=== PATIENT | female | born 1980 | race Caucasian/White ===

== ENCOUNTER → 2016-10-30 | Outpatient (REF) | payer OTHER ==
[2016-10-30 19:46] LABS: CONTROL LINE UCG INT CTR LINE PRESENT
== END ==
LOC: M LAB REF 09:35
PROVIDERS: ATTEND Physician Assistant Medical
DX: N39.0 Urinary tract infection, site not specified (principal)

== ENCOUNTER → 2016-11-19 | Outpatient (CLI) | payer OTHER ==
[2016-11-19 17:16] LABS: FREE T4 1.09 NG/DL (0.76-1.46); HCG, SERUM QUANTITATIVE < 1.0 MIU/ML
[2016-11-19 17:18] LABS: LUTEINIZING HORMONE 4.8 mIU/mL; PROLACTIN 6.3 NG/ML
[2016-11-19 17:19] LABS: FOLLICLE STIMULATING HORMONE 7.5 mIU/mL
== END ==
LOC: M LAB 15:51
PROVIDERS: ATTEND Student in an Organized Health Care Education/Training Program
DX: N91.2 Amenorrhea, unspecified (principal)

== ENCOUNTER 2016-12-17 15:28 | Emergency (ER) | payer OTHER ==
[~2016-12-17] VITALS: Ht 167.6 cm; Wt 110.2 kg
[2016-12-17] MEDS ORDERED: RANI150T (15:42)
[2016-12-17] MEDS ORDERED: TRAZ150T14 (15:42)
[2016-12-17] MEDS ORDERED: LORA10TA2 (15:42)
[2016-12-17] MEDS ORDERED: PRIL20CA9 PO (15:42)
[2016-12-17] MEDS ORDERED: VARE1TA (15:42)
[2016-12-17] MEDS ORDERED: ALBU17IN (15:42)
--- NOTE | 2016-12-17 16:56 | REP ---
Left knee series: Five views. History: Trauma. Comparison left knee radiograph is from June 18, 2008. Findings: Five views of the left knee demonstrate normal bones, joints, and soft tissues. No fracture, subluxation or joint effusion is seen. Impression: Negative left knee series. Signed by Lui Villeda MD 12/17/2016 05:40 P
[2016-12-17] MEDS ORDERED: NAPR500T PO (17:34)
[2016-12-17 17:38] VITALS: BP 127/66
== END 2016-12-17 17:43 | disposition home or self-care (01) ==
LOC: M ED 17:37
DX: S80.02XA Contusion of left knee, initial encounter (principal); S83.92XA Sprain of unspecified site of left knee, initial encounter; W19.XXXA Unspecified fall, initial encounter; Y92.410 Unspecified street and highway as the place of occurrence of the external cause; Y93.89 Activity, other specified; Y99.8 Other external cause status

== ENCOUNTER → 2017-05-20 | Outpatient (REF) | payer OTHER ==
[~2017-05-20] MED LIST: ALBU17IN; LORA10TA2; NAPR500T PO; PRIL20CA9 PO; RANI150T; TRAZ1TAB14; VARE1TA
[2017-05-20 16:21] LABS: BASO % 0.5 % (0.0-1.0); EOS # 0.2 K/mm3 (0.0-0.50); EOS % 2.3 % (0.0-3.0); LARGE UNSTAINED CELL # 0.1 K/mm3 (0.0-0.4); LARGE UNSTAINED CELL % 1.4 % (0.0-4.0); LYMPH # 3.8 K/mm3 (1.5-4.5); LYMPH % 42.9 % (24.0-44.0); MEAN CORPUSCULAR HGB CONC 34.3 g/dl (32.0-36.5); MEAN CORPUSCULAR VOLUME 93.2 fl (80.0-96.0); MONO # 0.5 K/mm3 (0.0-0.8); MONO % 5.5 % (0.0-5.0); NEUTROPHILS # 4.1 K/mm3 (1.8-7.7); NEUTROPHILS % 47.3 % (36.0-66.0); PLATELET COUNT, AUTOMATED 165 k/mm3 (150-450); RED CELL DISTRIBUTION WIDTH 12.8 % (11.5-14.5); WHITE BLOOD COUNT 8.6 K/mm3 (4.0-10.0)
== END ==
LOC: M SFHCPLAZ 14:37
DX: R06.02 Shortness of breath (principal)

== ENCOUNTER → 2017-07-20 | Outpatient (CLI) | payer OTHER ==
[2017-07-20 09:47] LABS: BASO % 0.5 % (0.0-1.0); EOS # 0.2 10^3/uL (0.0-0.50); EOS % 2.2 % (0.0-3.0); IMMATURE GRANULOCYTE % 0.2 % (0-0); LYMPH # 3.1 10^3/uL (1.5-4.5); LYMPH % 37.8 % (24.0-44.0); MEAN CORPUSCULAR HGB CONC 33.8 g/dl (32.0-36.5); MEAN CORPUSCULAR VOLUME 91.8 fl (80.0-96.0); MONO # 0.4 10^3/uL (0.0-0.8); MONO % 5.4 % (0.0-5.0); NEUTROPHILS # 4.4 10^3/uL (1.8-7.7); NEUTROPHILS % 53.9 % (36.0-66.0); PLATELET COUNT, AUTOMATED 152 10^3/uL (150-450); RED CELL DISTRIBUTION WIDTH 12.3 % (11.5-14.5); WHITE BLOOD COUNT 8.1 10^3/uL (4.0-10.0)
[2017-07-20 10:22] LABS: ALBUMIN 3.2 GM/DL (3.2-5.2); ALBUMIN/GLOBULIN RATIO 0.89 (1.00-1.93); ALKALINE PHOSPHATASE 85 U/L (45-117); ALT/SGPT 26 U/L (12-78); ANION GAP 6 MEQ/L (8-16); AST/SGOT 16 U/L (15-37); BILIRUBIN,TOTAL 0.3 MG/DL (0.2-1.0); BLOOD UREA NITROGEN 9 MG/DL (7-18); CALCIUM LEVEL 8.6 MG/DL (8.5-10.1); CARBON DIOXIDE LEVEL 28 MEQ/L (21-32); CHLORIDE LEVEL 104 MEQ/L (98-107); CHOLESTEROL LEVEL 184 MG/DL (<200); CREATININE FOR GFR 0.58 MG/DL (0.55-1.02); GLOMERULAR FILTRATION RATE > 60.0 (>60); GLUCOSE, FASTING 99 MG/DL (70-105); POTASSIUM SERUM 3.9 MEQ/L (3.5-5.1); SODIUM LEVEL 138 MEQ/L (136-145); TOTAL PROTEIN 6.8 GM/DL (6.4-8.2); TRIGLYCERIDES LEVEL 255 MG/DL (<150)
--- NOTE | 2017-07-21 05:24 | REP ---
Clinical: Back pain. Peripheral vascular disease . Technique: AP, lateral, bilateral oblique, and coned-down views. Findings: Alignment and lordosis is maintained. The vertebral bodies including transverse process and spinous processes are intact and normal. There is no evidence for acute fracture / compression injury or subluxation. No evidence for spondylolysis or spondylolisthesis. No significant degenerative change is noted. Impression: Normal lumbosacral spine radiograph series. Signed by Mt Herman MD 07/21/2017 05:15 A
== END ==
LOC: M LAB 09:06
PROVIDERS: ATTEND Student in an Organized Health Care Education/Training Program
DX: I73.9 Peripheral vascular disease, unspecified (principal)

== ENCOUNTER 2017-10-05 17:37 | Emergency (ER) | payer OTHER | END 2017-10-05 21:14 | disposition home or self-care (01) | LOC: M ED 17:37 | DX: J06.9 Acute upper respiratory infection, unspecified (principal); F17.200 Nicotine dependence, unspecified, uncomplicated; F41.9 Anxiety disorder, unspecified; F32.9 Major depressive disorder, single episode, unspecified; J45.909 Unspecified asthma, uncomplicated | CPT/HCPCS: 71046 ==

== ENCOUNTER → 2017-10-15 | Outpatient (REF) | payer OTHER | LOC: M SFHCWAGY 15:45 | DX: Z12.4 Encounter for screening for malignant neoplasm of cervix (principal); Z11.3 Encounter for screening for infections with a predominantly sexual mode of transmission ==

== ENCOUNTER → 2017-10-15 | Outpatient (REF) | payer OTHER ==
[2017-10-15 21:51] LABS: CHLAMYDIA DNA AMPLIFICATION NEGATIVE (NEGATIVE); GC DNA AMPLIFICATION NEGATIVE (NEGATIVE)
== END ==
LOC: M SFHCWAGY 17:21
DX: Z11.3 Encounter for screening for infections with a predominantly sexual mode of transmission (principal)

== ENCOUNTER 2017-10-21 20:11 | Emergency (ER) | payer OTHER | END 2017-10-21 22:46 | disposition home or self-care (01) | LOC: M ED 20:11 | DX: L03.116 Cellulitis of left lower limb (principal); K21.9 Gastro-esophageal reflux disease without esophagitis; F41.9 Anxiety disorder, unspecified; F32.9 Major depressive disorder, single episode, unspecified; F17.210 Nicotine dependence, cigarettes, uncomplicated; Z88.6 Allergy status to analgesic agent; Z79.1 Long term (current) use of non-steroidal anti-inflammatories (NSAID); Z79.899 Other long term (current) drug therapy; Z79.51 Long term (current) use of inhaled steroids | CPT/HCPCS: 93971 ==

== ENCOUNTER → 2017-10-28 | Outpatient (REF) | payer OTHER ==
[2017-10-28 21:26] LABS: MAU/CREAT RATIO 231.7 MCG/MG (0.0-30.0)
[2017-10-28 22:31] LABS: ESTIMATED AVERAGE GLUCOSE 126 MG/DL (60-110)
== END ==
LOC: M SFHCPLAZ 13:44
DX: Z13.1 Encounter for screening for diabetes mellitus (principal)
CPT/HCPCS: 83036

== ENCOUNTER → 2018-02-02 | Outpatient (CLI) | payer OTHER ==
[2018-02-02 10:41] LABS: D-DIMER QUANT 576.4 ng/ml (<500)
== END ==
LOC: M LAB 09:41
DX: Z00.00 Encounter for general adult medical examination without abnormal findings (principal)
CPT/HCPCS: 36415

== ENCOUNTER → 2018-02-09 | Outpatient (CLI) | payer OTHER ==
[~2018-02-09] MED LIST changes: -ALBU17IN; +ISOVUE-300 61% 50ML VIAL (Q9967) As Ordered; +ISOVUE-370 76% 100ML VIAL (Q9967) As Ordered; -LORA10TA2; -NAPR500T PO; -PRIL20CA9 PO; -RANI150T; -TRAZ1TAB14; -VARE1TA
== END ==
LOC: M RAD 17:55
DX: R06.02 Shortness of breath (principal)
CPT/HCPCS: Q9967

== ENCOUNTER 2018-06-14 18:43 | Emergency (ER) | payer OTHER ==
[2018-06-14] MEDS: IBUPROFEN 800 MG TAB PO (19:12)
== END 2018-06-14 20:35 | disposition home or self-care (01) ==
LOC: M ED 18:43
DX: M25.541 Pain in joints of right hand (principal); F41.9 Anxiety disorder, unspecified; F32.9 Major depressive disorder, single episode, unspecified; K21.9 Gastro-esophageal reflux disease without esophagitis; F17.200 Nicotine dependence, unspecified, uncomplicated; Z88.6 Allergy status to analgesic agent; Z79.899 Other long term (current) drug therapy; Z79.1 Long term (current) use of non-steroidal anti-inflammatories (NSAID)
CPT/HCPCS: 73130

== ENCOUNTER → 2018-08-29 | Outpatient (CLI) | payer OTHER | LOC: M RAD 15:15 | DX: R05 Cough (principal) | CPT/HCPCS: 71046 ==

== ENCOUNTER 2019-02-20 22:00 | Emergency (ER) | payer OTHER ==
[~2019-02-20] VITALS: Ht 167.6 cm; Wt 113.6 kg
[~2019-02-20 22:00] MED LIST changes: +ALBU17IN; +BREO1INH; +CITA20TA6; +FLUTISP; +INDO50CA11 PO; -ISOVUE-300 61% 50ML VIAL (Q9967) As Ordered; -ISOVUE-370 76% 100ML VIAL (Q9967) As Ordered; +KEFL500C17 PO; +LORA-243; +NAPR-837 PO; +PRIL20CA9 PO; +RANI150T; +TESS100C PO; +TRAZ1TAB14; +VARE1TA; +ZITHTAB PO
[2019-02-20] MEDS ORDERED: IPRATROPIUM 0.5MG/ALBUTEROL 2.5MG INH SOL UD 3ML (DUONEB)(J7620) NEB ONE (22:30)
[2019-02-20 22:36] LABS: HEMATOCRIT 42.6 % (36.0-47.0); HEMOGLOBIN 14.3 g/dl (12.0-15.5); MEAN CORPUSCULAR HEMOGLOBIN 31.8 pg (27.0-33.0); MEAN CORPUSCULAR HGB CONC 33.6 g/dl (32.0-36.5); MEAN CORPUSCULAR VOLUME 94.7 fl (80.0-96.0); PLATELET COUNT, AUTOMATED 152 10^3/uL (150-450); WHITE BLOOD COUNT 8.4 10^3/uL (4.0-10.0)
[2019-02-20 23:13] LABS: BLOOD UREA NITROGEN 17 MG/DL (7-18); CALCIUM LEVEL 8.3 MG/DL (8.5-10.1); CARBON DIOXIDE LEVEL 25 MEQ/L (21-32); CHLORIDE LEVEL 107 MEQ/L (98-107); CREATININE FOR GFR 1.45 MG/DL (0.55-1.30); GLOMERULAR FILTRATION RATE 42.8 (>60); GLUCOSE, FASTING 160 MG/DL (70-100); NT-PRO BNP < 5 PG/ML (<125); POTASSIUM SERUM 3.8 MEQ/L (3.5-5.1); SODIUM LEVEL 139 MEQ/L (136-145)
[2019-02-20] MEDS ORDERED: ISOVUE-370 76% 100ML VIAL (Q9967) As Ordered ONE (23:21)
[2019-02-20] MEDS ORDERED: NS 1,000 ML IV ONE (23:30)
--- NOTE | 2019-02-20 23:38 | REPVR ---
EXAM: US Duplex Right Lower Extremity Veins, Limited EXAM DATE/TIME: 02/20/2019 11:08 PM CLINICAL HISTORY: 38 years old, female; Signs and symptoms; Edema, localized; Lower extremity, right; Additional info: Right calf foot swelling, pain TECHNIQUE: Imaging protocol: Real-time Duplex ultrasound of the Right Lower Extremity with 2-D mead scale, color Doppler flow and spectral waveform analysis. Limited exam was focused on the right lower extremity veins. COMPARISON: US Duplex, Ext,LOWER veins,unilat 10/21/2017 10:03 PM FINDINGS: Right deep veins: Unremarkable. The common femoral, femoral and popliteal veins are patent without thrombus. Normal Doppler waveforms. Normal compressibility and/or augmentation response. Right superficial veins: Unremarkable. Saphenofemoral junction is patent without thrombus. Soft tissues: Unremarkable. IMPRESSION: No sonographic evidence of deep vein thrombosis. Electronically signed by: Jose Bullock On 02/20/2019 23:38:08 PM
--- NOTE | 2019-02-21 00:06 | REPVR ---
EXAM: CT Angiography Chest With Contrast EXAM DATE/TIME: 02/20/2019 11:17 PM CLINICAL HISTORY: 38 years old, female; Pain and signs and symptoms; Cough and shortness of breath; Chest pain; Type not specified; Additional info: Cough, SOB, tachy, elev d dimer TECHNIQUE: Imaging protocol: Axial computed tomographic angiography images of the chest with intravenous contrast using CT angiography protocol. Coronal and sagittal reformatted images were created and reviewed. 3D rendering: MIP reconstructed images were created and reviewed. Radiation optimization: All CT scans at this facility use at least one of these dose optimization techniques: automated exposure control; mA and/or kV adjustment per patient size (includes targeted exams where dose is matched to clinical indication); or iterative reconstruction. Contrast material: ISO; Contrast volume: 75 ml; Contrast route: AC; COMPARISON: CT ANGIO CHEST 02/09/2018 6:14 PM FINDINGS: Pulmonary arteries: Contrast opacification satisfactory. No intraluminal filling defect. Aorta: Unremarkable. No aneurysm or dissection. Lungs: Mild linear stranding and groundglass, likely due to atelectasis and/or scarring. No focal consolidation. Pleural space: Unremarkable. No pneumothorax. No pleural effusion. Heart: Unremarkable. No cardiomegaly. No pericardial effusion. Lymph nodes: Small mediastinal lymph nodes, nonspecific in appearance. No pathologically enlarged lymph nodes. Bones/joints: No acute osseous abnormality. Mild degenerative changes. Soft tissues: Unremarkable. IMPRESSION: 1. No CT evidence of pulmonary embolism. 2. Additional findings, as above. Electronically signed by: Jose Bullock On 02/21/2019 00:06:04 AM
[2019-02-21 00:50] VITALS: BP 140/67
--- NOTE | 2019-02-21 06:15 | REP ---
Clinical: Shortness of breath . Comparison: 08/29/2018 . Technique: PA and lateral. Findings: The mediastinum and cardiac silhouette are normal. The lung miner are clear and without acute consolidation, effusion, or pneumothorax. The skeletal structures are intact and normal. Impression: 1. No acute cardiopulmonary process. Electronically Signed by Mt Herman MD 02/21/2019 06:07 A
== END 2019-02-21 00:53 | disposition home or self-care (01) ==
LOC: M ED 22:00
DX: R60.0 Localized edema (principal); R06.02 Shortness of breath; R05 Cough; J45.909 Unspecified asthma, uncomplicated; F41.0 Panic disorder [episodic paroxysmal anxiety]; Z72.0 Tobacco use; Z79.899 Other long term (current) drug therapy
CPT/HCPCS: 71046; 71275; 80048; 83880; 85027; 85379; 93971; 94640; 96360; 99284; Q9967

== ENCOUNTER → 2019-03-01 | Outpatient (CLI) | payer OTHER ==
[2019-03-01 15:26] LABS: APPEARANCE, URINE CLEAR (CLEAR); BACTERIA, URINE AUTO 1+ (NEGATIVE); BILIRUBIN, URINE AUTO NEGATIVE (NEGATIVE); BLOOD, URINE BLOOD 3+ (NEGATIVE); COLOR, URINE STRAW (YELLOW); GLUCOSE, URINE (UA) AUTO NEGATIVE (NEGATIVE); KETONE, URINE AUTO NEGATIVE (NEGATIVE); LEUKOCYTE ESTERASE, URINE AUTO NEGATIVE (NEGATIVE); MUCUS, URINE SMALL (NEGATIVE); NITRITE, URINE AUTO NEGATIVE (NEGATIVE); PROTEIN, URINE AUTO NEGATIVE (NEGATIVE); RBC, URINE AUTO 6 /HPF (0-3); SPECIFIC GRAVITY URINE AUTO 1.003 (1.002-1.035); SQUAMOUS EPITHELIAL CELL UR AU 0 /HPF (0-6); UROBILINOGEN, URINE AUTO 0.2 mg/dL (0.0-2.0); WBC, URINE AUTO 1 /HPF (0-3)
[2019-03-01 15:45] LABS: HEMOGLOBIN A1c 5.6 %
[2019-03-01 15:50] LABS: BLOOD UREA NITROGEN 9 MG/DL (7-18); CALCIUM LEVEL 9.6 MG/DL (8.5-10.1); CARBON DIOXIDE LEVEL 29 MEQ/L (21-32); CHLORIDE LEVEL 106 MEQ/L (98-107); CREATININE FOR GFR 0.72 MG/DL (0.55-1.30); GLOMERULAR FILTRATION RATE > 60.0 (>60); GLUCOSE, FASTING 93 MG/DL (70-100); POTASSIUM SERUM 4.3 MEQ/L (3.5-5.1); SODIUM LEVEL 139 MEQ/L (136-145)
[2019-03-01 15:52] LABS: TOTAL PROTEIN,RANDOM URINE 23.4 MG/DL (0.0-12.0)
[2019-03-01 16:16] LABS: HEPATITIS B SURFACE ANTIGEN NEGATIVE (NEGATIVE)
[2019-03-01 16:44] LABS: HEPATITIS B CORE ANTIBODY IGM NEGATIVE (NEGATIVE); HIV 1&2 SCREEN CENTAUR NEGATIVE (NEGATIVE)
[2019-03-01 16:46] LABS: HEPATITIS A ANTIBODY IGM NEGATIVE (NEGATIVE)
[2019-03-01 18:11] LABS: HEPATITIS C VIRUS ABY INDEX 2.3 INDEX (<0.8)
[2019-03-09 14:51] LABS: ANTI DS-DNA AB <1:10 titer (.); ANTI-GLOMERULAR BASEMENT MEMB 3 units (0-20); ANTINUCLEAR ANTIBODIES DIRECT Negative (Negative)
== END ==
LOC: M LAB 14:42
PROVIDERS: ATTEND Hospitalist
DX: R80.9 Proteinuria, unspecified (principal)

== ENCOUNTER → 2019-03-08 | Outpatient (CLI) | payer OTHER, SELFPAY ==
[2019-03-08 10:12] LABS: ALBUMIN 3.4 GM/DL (3.2-5.2); ALT/SGPT 37 U/L (12-78); BILIRUBIN,TOTAL 0.1 MG/DL (0.2-1.0); BLOOD UREA NITROGEN 12 MG/DL (7-18); CALCIUM LEVEL 8.7 MG/DL (8.5-10.1); CARBON DIOXIDE LEVEL 25 MEQ/L (21-32); CHLORIDE LEVEL 107 MEQ/L (98-107); CREATININE FOR GFR 0.67 MG/DL (0.55-1.30); GLOMERULAR FILTRATION RATE > 60.0 (>60); GLUCOSE, FASTING 130 MG/DL (70-100); SODIUM LEVEL 140 MEQ/L (136-145)
[2019-03-08 11:19] LABS: URINE TOTAL PROTEIN 59.7 MG/DL (0-12)
[2019-03-09 07:49] LABS: CRYOGLOBULINS NEGATIVE (NEGATIVE)
[2019-03-09 10:34] LABS: UPEP INTERPRETATION NO M-SPIKE NOTED; URINE VOLUME RANDOM ML
[2019-03-09 11:36] LABS: ALBUMIN 3.84 GM/DL (3.29-5.55); ALBUMIN % 54.9 % (55.8-66.1); ALPHA-1-GLOBULIN % 4.3 % (2.9-4.9); ALPHA-2-GLOBULINS 0.86 GM/DL (0.42-0.99); ALPHA-2-GLOBULINS % 12.3 % (7.1-11.8); BETA-1-GLOBULINS 0.38 GM/DL (0.28-0.60); BETA-1-GLOBULINS % 5.4 % (4.7-7.2); BETA-2-GLOBULINS 0.44 GM/DL (0.19-0.55); BETA-2-GLOBULINS % 6.3 % (3.2-6.5); GAMMA GLOBULINS 1.18 GM/DL (0.65-1.58)
[2019-03-09 11:37] LABS: GAMMA GLOBULIN % 16.8 % (11.1-18.8)
== END ==
LOC: M LAB 08:44
PROVIDERS: ATTEND Hospitalist
DX: B19.20 Unspecified viral hepatitis C without hepatic coma (principal); B18.2 Chronic viral hepatitis C

== ENCOUNTER → 2019-06-08 | Outpatient (REF) | payer OTHER ==
[~2019-06-08] MED LIST changes: -INDO50CA11 PO; +INDO50CA91 PO
== END ==
LOC: M SFHCPLAZ 08:42
PROVIDERS: ATTEND Physician Assistant Medical
DX: Z32.02 Encounter for pregnancy test, result negative (principal); Z13.220 Encounter for screening for lipoid disorders; Z68.41 Body mass index [BMI] 40.0-44.9, adult

== ENCOUNTER → 2019-07-11 | Outpatient (CLI) | payer OTHER ==
[2019-07-11 11:16] LABS: URINE PREG TEST NEGATIVE (NEGATIVE)
[2019-07-11 12:01] LABS: ALBUMIN 3.4 GM/DL (3.2-5.2); ALT/SGPT 31 U/L (12-78); BILIRUBIN,TOTAL 0.2 MG/DL (0.2-1.0); BLOOD UREA NITROGEN 13 MG/DL (7-18); CALCIUM LEVEL 8.8 MG/DL (8.5-10.1); CARBON DIOXIDE LEVEL 27 MEQ/L (21-32); CHLORIDE LEVEL 106 MEQ/L (98-107); CHOLESTEROL LEVEL 207 MG/DL (<200); CHOLESTEROL RISK RATIO 6.677 (<5); CREATININE FOR GFR 0.73 MG/DL (0.55-1.30); FREE T4 1.03 NG/DL (0.76-1.46); GLOMERULAR FILTRATION RATE > 60.0 (>60); GLUCOSE, FASTING 120 MG/DL (70-100); HDL CHOLESTEROL 31 MG/DL (>40); NON-HDL-C 176 MG/DL; POTASSIUM SERUM 3.8 MEQ/L (3.5-5.1); SODIUM LEVEL 141 MEQ/L (136-145); TOTAL PROTEIN 6.8 GM/DL (6.4-8.2); TRIGLYCERIDES LEVEL 483 MG/DL (<150)
== END ==
LOC: M LAB 10:44
PROVIDERS: ATTEND Physician Assistant Medical
DX: Z13.220 Encounter for screening for lipoid disorders (principal); Z68.41 Body mass index [BMI] 40.0-44.9, adult

== ENCOUNTER → 2019-09-05 | Outpatient (CLI) | payer OTHER ==
[2019-09-05 12:12] LABS: ALBUMIN 3.4 GM/DL (3.2-5.2); ALT/SGPT 36 U/L (12-78); BILIRUBIN,TOTAL 0.2 MG/DL (0.2-1.0); BLOOD UREA NITROGEN 15 MG/DL (7-18); CALCIUM LEVEL 8.8 MG/DL (8.5-10.1); CARBON DIOXIDE LEVEL 28 MEQ/L (21-32); CHLORIDE LEVEL 108 MEQ/L (98-107); CHOLESTEROL LEVEL 183 MG/DL (<200); CHOLESTEROL RISK RATIO 5.718 (<5); CPK CREATINE PHOSPHOKINASE 112 U/L (26-192); CREATININE FOR GFR 0.63 MG/DL (0.55-1.30); GLOMERULAR FILTRATION RATE > 60.0 (>60); GLUCOSE, FASTING 108 MG/DL (70-100); HDL CHOLESTEROL 32 MG/DL (>40); LDL CHOLESTEROL 80 MG/DL (<100); NON-HDL-C 151 MG/DL; SODIUM LEVEL 141 MEQ/L (136-145); TOTAL PROTEIN 7.1 GM/DL (6.4-8.2); TRIGLYCERIDES LEVEL 354 MG/DL (<150)
== END ==
LOC: M LAB 08:52
PROVIDERS: ATTEND Physician Assistant Medical
DX: E78.2 Mixed hyperlipidemia (principal)

== ENCOUNTER → 2019-09-07 | Outpatient (REF) | payer OTHER | LOC: M SFHCPLAZ 11:25 | PROVIDERS: ATTEND Physician Assistant Medical | DX: R05 Cough (principal) ==

== ENCOUNTER → 2019-09-08 | Outpatient (CLI) | payer OTHER ==
--- NOTE | 2019-09-08 17:15 | REP ---
CHEST, TWO VIEWS: COMPARISON: 02/20/2019 There is no evidence of acute infiltrate. No pleural effusion is seen. The heart is normal in size. The mediastinal silhouette is unremarkable. The visualized osseous structures are intact. IMPRESSION: No acute pulmonary disease. Electronically Signed by Karsten Piper MD 09/11/2019 03:45 P
== END ==
LOC: M LAB 14:55
PROVIDERS: ATTEND Physician Assistant Medical
DX: R05 Cough (principal)

== ENCOUNTER → 2019-09-08 | Outpatient (REF) | payer OTHER | LOC: M SFHCPLAZ 18:54 | PROVIDERS: ATTEND Physician Assistant Medical | DX: R05 Cough (principal) ==

== ENCOUNTER 2019-11-20 21:01 | Emergency (ER) | payer OTHER ==
[~2019-11-20] VITALS: Ht 167.6 cm; Wt 123.1 kg
[2019-11-20 21:02] VITALS: BP 138/92
[2019-11-20] MEDS ORDERED: LIDOCAINE 4% CREAM 5GM (LMX4) TOP ONE (22:45)
--- NOTE | 2019-11-21 07:46 | REP ---
Clinical: Trauma. Technique: AP, lateral, bilateral oblique views right foot . Findings: The osseous structures and joint spaces are intact and normal. Evidence for prior surgical repair at the fifth metatarsal bone. There is no evidence for acute fracture or dislocation. Surrounding soft tissues are unremarkable. No subcutaneous emphysema or radiodense foreign body. Impression: No acute fracture or dislocation. Electronically Signed by Mt Herman MD 11/21/2019 07:37 A
== END 2019-11-20 23:09 | disposition home or self-care (01) ==
LOC: M ED 21:01
DX: S93.601A Unspecified sprain of right foot, initial encounter (principal); W10.8XXA Fall (on) (from) other stairs and steps, initial encounter; Y92.019 Unspecified place in single-family (private) house as the place of occurrence of the external cause; J45.909 Unspecified asthma, uncomplicated; K21.9 Gastro-esophageal reflux disease without esophagitis; F17.210 Nicotine dependence, cigarettes, uncomplicated; Z79.51 Long term (current) use of inhaled steroids; Z79.899 Other long term (current) drug therapy

== ENCOUNTER 2019-12-14 17:10 | Emergency (ER) | payer OTHER ==
[~2019-12-14] VITALS: Ht 167.6 cm; Wt 120.5 kg
--- NOTE | 2019-12-14 19:02 | REP ---
Left wrist series: Four views. History: Injury. Findings: Four views of the left wrist show a large cyst occupying much of the central portion of the navicular bone. This is a little larger but otherwise unchanged when compared with the prior left wrist radiographs from August 25, 2010. No fracture or subluxation is seen. Joint spaces are preserved. Impression: Fairly large intraosseous cyst in the navicular bone. This has a benign appearance. It is somewhat larger than on August 25, 2010 prior radiographs of the left wrist. Electronically Signed by Lui Villeda MD 12/14/2019 06:54 P
[2019-12-14 19:29] VITALS: BP 132/62
--- NOTE | 2019-12-17 18:57 | ED PDOC ---
Post-Departure Follow-Up curtis jordan faxed formal report of left wrist film for fu Willis Aranda MD Dec 17, 2019 18:57
== END 2019-12-14 19:35 | disposition home or self-care (01) ==
LOC: M ED 17:10
DX: M25.532 Pain in left wrist (principal); M85.642 Other cyst of bone, left hand; F17.210 Nicotine dependence, cigarettes, uncomplicated; Z79.51 Long term (current) use of inhaled steroids; Z79.899 Other long term (current) drug therapy

== ENCOUNTER → 2020-02-12 | Outpatient (CLI) | payer OTHER ==
--- NOTE | 2020-02-12 19:03 | REPPI ---
Clinical: Cough . Comparison: 09/08/2019 . Technique: PA and lateral. Findings: The mediastinum and cardiac silhouette are normal. The lung miner are clear and without acute consolidation, effusion, or pneumothorax. The skeletal structures are intact and normal. Impression: 1. No focal consolidation or effusion. Electronically Signed by Mt Herman MD 02/12/2020 06:55 P
== END ==
LOC: M PLAIMG 12:28
PROVIDERS: ATTEND Physician Assistant Medical
DX: R05 Cough (principal)

== ENCOUNTER → 2020-02-12 | Outpatient (REF) | payer OTHER | LOC: M SFHCPLAZ 17:15 | PROVIDERS: ATTEND Physician Assistant Medical | DX: R05 Cough (principal) ==

== ENCOUNTER → 2020-11-20 | Outpatient (REF) | payer OTHER ==
[2020-11-20 16:08] LABS: APPEARANCE, URINE CLOUDY (CLEAR); BACTERIA, URINE AUTO 1+ (NEGATIVE); BILIRUBIN, URINE AUTO NEGATIVE (NEGATIVE); BLOOD, URINE BLOOD 3+ (NEGATIVE); COLOR, URINE YELLOW (YELLOW); GLUCOSE, URINE (UA) AUTO NEGATIVE (NEGATIVE); KETONE, URINE AUTO NEGATIVE (NEGATIVE); LEUKOCYTE ESTERASE, URINE AUTO 1+ (NEGATIVE); MUCUS, URINE SMALL (NEGATIVE); NITRITE, URINE AUTO NEGATIVE (NEGATIVE); PROTEIN, URINE AUTO 2+ mg/dL (NEGATIVE); RBC, URINE AUTO 14 /HPF (0-3); SPECIFIC GRAVITY URINE AUTO 1.011 (1.002-1.035); SQUAMOUS EPITHELIAL CELL UR AU 12 /HPF (0-6); UROBILINOGEN, URINE AUTO 0.2 mg/dL (0.0-2.0); WBC, URINE AUTO 23 /HPF (0-3)
[2020-11-20 16:14] LABS: BASO # 0.1 10^3/uL (0.0-0.2); BASO % 0.6 % (0.0-1.0); EOS # 0.2 10^3/uL (0.0-0.5); EOS % 2.7 % (0.0-3.0); HEMATOCRIT 46.5 % (36.0-47.0); HEMOGLOBIN 15.2 g/dl (12.0-15.5); LYMPH # 3.4 10^3/uL (1.5-5.0); LYMPH % 38.8 % (24.0-44.0); MEAN CORPUSCULAR HEMOGLOBIN 31.3 pg (27.0-33.0); MEAN CORPUSCULAR HGB CONC 32.7 g/dl (32.0-36.5); MEAN CORPUSCULAR VOLUME 95.9 fl (80.0-96.0); MONO # 0.5 10^3/uL (0.0-0.8); MONO % 6.1 % (2.0-8.0); NEUTROPHILS # 4.6 10^3/uL (1.5-8.5); NEUTROPHILS % 51.2 % (36.0-66.0); PLATELET COUNT, AUTOMATED 179 10^3/uL (150-450); RED BLOOD COUNT 4.85 10^6/uL (4.00-5.40); WHITE BLOOD COUNT 8.9 10^3/uL (4.0-10.0)
[2020-11-20 16:41] LABS: ALBUMIN 3.5 GM/DL (3.2-5.2); ALT/SGPT 35 U/L (12-78); BILIRUBIN,TOTAL 0.1 MG/DL (0.2-1.0); BLOOD UREA NITROGEN 13 MG/DL (7-18); CALCIUM LEVEL 8.9 MG/DL (8.5-10.1); CARBON DIOXIDE LEVEL 27 MEQ/L (21-32); CHLORIDE LEVEL 104 MEQ/L (98-107); CHOLESTEROL LEVEL 263 MG/DL (<200); CHOLESTEROL RISK RATIO 7.735 (<5); CREATININE FOR GFR 0.79 MG/DL (0.55-1.30); FREE T4 0.99 NG/DL (0.76-1.46); GLOMERULAR FILTRATION RATE > 60.0 (>58); GLUCOSE, FASTING 100 MG/DL (70-100); HDL CHOLESTEROL 34 MG/DL (>40); LDL CHOLESTEROL 182 MG/DL (<100); NON-HDL-C 229 MG/DL; POTASSIUM SERUM 4.4 MEQ/L (3.5-5.1); SODIUM LEVEL 138 MEQ/L (136-145); THYROID STIMULATING HORMONE 0.965 uIU/ML (0.358-3.740); TOTAL PROTEIN 7.2 GM/DL (6.4-8.2); TRIGLYCERIDES LEVEL 236 MG/DL (<150)
[2020-11-20 17:09] LABS: HEMOGLOBIN A1c 5.7 %
== END ==
LOC: M SFHCPLAZ 13:45
PROVIDERS: ATTEND Physician Assistant Medical
DX: J45.909 Unspecified asthma, uncomplicated (principal); E78.2 Mixed hyperlipidemia; E66.01 Morbid (severe) obesity due to excess calories; F41.1 Generalized anxiety disorder; N06.9 Isolated proteinuria with unspecified morphologic lesion

== ENCOUNTER → 2020-12-06 | Outpatient (CLI) | payer OTHER ==
--- NOTE | 2020-12-06 11:48 | REPVR ---
PROCEDURE INFORMATION: Exam: MR Lumbar Spine Without Contrast Exam date and time: 12/06/2020 11:16 AM Age: 40 years old Clinical indication: Low back pain; Additional info: Lumbar ddd TECHNIQUE: Imaging protocol: Multiplanar magnetic resonance images of the lumbar spine without intravenous contrast. COMPARISON: CR Spine,LS wBENDING MIN 6 VIEWS 07/20/2017 9:23 AM FINDINGS: Vertebrae: The lumbar vertebral bodies are normal in height,signal intensity and alignment.No acute fracture or dislocation is seen. Spinal epidural space: There is no evidence of epidural masses or hemorrhage. Spinal cord: The conus medullaris is normal. The cauda equina nerve roots demonstrate no crowding or displacement. L1-L2: There is no significant degenerative disc herniation.The spinal canal and neural foramina are patent and without significant stenosis. L2-L3: There is no significant degenerative disc herniation.The spinal canal and neural foramina are patent and without significant stenosis. Moderate facet arthropathy. L3-L4: There is no significant degenerative disc herniation.The spinal canal and neural foramina are patent and without significant stenosis. Moderate facet arthropathy. L4-L5: Mildly reduced in height and T2 signal indicating degeneration.There is a mild diffuse posterior bulge causing mild effacement of the thecal sac. Small left foraminal protrusion causing mild left foraminal stenosis.The facet joints demonstrate moderate degenerative narrowing and sclerosis.There is no evidence of spinal canal narrowing. L5-S1: Mildly reduced in height and T2 signal indicating degeneration.There is a mild diffuse posterior bulge causing mild effacement of the thecal sac.The facet joints demonstrate moderate degenerative narrowing and sclerosis.There is no evidence of spinal canal narrowing.There is mild bilateral foraminal stenosis. Soft tissues: The prevertebral soft tissues appear normal. IMPRESSION: MRI of the lumbar spine reveals mild multilevel degenerative spondylitic changes and degenerative disc disease as described above. There is no evidence of spinal canal narrowing. Electronically signed by: Dominick Peterson On 12/06/2020 11:48:38 AM
== END ==
LOC: M PLARAD 10:29
PROVIDERS: ATTEND Physician Assistant Medical
DX: M51.36 Other intervertebral disc degeneration, lumbar region (principal)

== ENCOUNTER → 2020-12-11 | Outpatient (REF) | payer OTHER ==
[2020-12-11 16:06] LABS: APPEARANCE, URINE CLOUDY (CLEAR); BACTERIA, URINE AUTO 3+ (NEGATIVE); BILIRUBIN, URINE AUTO NEGATIVE (NEGATIVE); BLOOD, URINE BLOOD 3+ (NEGATIVE); COLOR, URINE YELLOW (YELLOW); GLUCOSE, URINE (UA) AUTO NEGATIVE (NEGATIVE); KETONE, URINE AUTO NEGATIVE (NEGATIVE); LEUKOCYTE ESTERASE, URINE AUTO 3+ (NEGATIVE); MUCUS, URINE SMALL (NEGATIVE); NITRITE, URINE AUTO NEGATIVE (NEGATIVE); PROTEIN, URINE AUTO 2+ mg/dL (NEGATIVE); RBC, URINE AUTO 5 /HPF (0-3); SPECIFIC GRAVITY URINE AUTO 1.017 (1.002-1.035); SQUAMOUS EPITHELIAL CELL UR AU 4 /HPF (0-6); UROBILINOGEN, URINE AUTO 0.2 mg/dL (0.0-2.0); WBC, URINE AUTO 142 /HPF (0-3)
[2020-12-14 03:07] LABS: HEPATITIS C QUANTITATION HCV Not Detected IU/mL (.)
== END ==
LOC: M SFHCPLAZ 13:03
PROVIDERS: ATTEND Physician Assistant Medical
DX: R76.8 Other specified abnormal immunological findings in serum (principal); N06.9 Isolated proteinuria with unspecified morphologic lesion

== ENCOUNTER → 2020-12-13 | Outpatient (CLI) | payer OTHER ==
--- NOTE | 2020-12-13 15:43 | REPMRS ---
Patient History The patient states she has not had a clinical breast exam in over a year. Family history of colorectal cancer in mother. 3D TOMOSYNTHESIS WAS PERFORMED. [facility] lifetime risk for breast cancer is 10.2%. Volpara breast density b. Digital Woman Screen Mammo: December 13, 2020 - Exam #: [id number] Bilateral CC and MLO view(s) were taken. Technologist: Vanessa Chowdhury Technologist FINDINGS: There are scattered fibroglandular densities. There is a mild amount of residual fibroglandular tissue which is fairly symmetric. There is no dominant mass, architectural distortion, or clustered microcalcification suggestive of malignancy. Assessment: BI-RADS/ACR category 1 mammogram. Negative Mammogram. Recommendation Routine screening mammogram in 1 year (for women over age 40). This mammogram was interpreted with the aid of an FDA-approved computer-aided dectection system. Electronically Signed By: Karsten Piper MD 12/13/20 0120
== END ==
LOC: M WHC 14:25
PROVIDERS: ATTEND Physician Assistant Medical
DX: Z12.31 Encounter for screening mammogram for malignant neoplasm of breast (principal); Z80.0 Family history of malignant neoplasm of digestive organs

== ENCOUNTER → 2021-01-23 | Outpatient (REF) | payer OTHER | LOC: M SFHCWAGY 13:18 | PROVIDERS: ATTEND Nurse Practitioner Women's Health | DX: Z12.4 Encounter for screening for malignant neoplasm of cervix (principal) ==

== ENCOUNTER → 2021-04-14 | Outpatient (CLI) | payer OTHER | LOC: M PLAIMG 13:21 | PROVIDERS: ATTEND Physician Assistant Medical | DX: M25.572 Pain in left ankle and joints of left foot (principal) ==

== ENCOUNTER → 2021-11-20 | Outpatient (CLI) | payer OTHER ==
[2021-11-20 17:36] LABS: BASO % 0.4 % (0.0-1.0); EOS # 0.3 10^3/uL (0.0-0.5); EOS % 2.9 % (0.0-3.0); HEMATOCRIT 46.3 % (36.0-47.0); HEMOGLOBIN 15.2 g/dl (12.0-15.5); LYMPH # 4.3 10^3/uL (1.5-5.0); MEAN CORPUSCULAR HEMOGLOBIN 30.9 pg (27.0-33.0); MEAN CORPUSCULAR HGB CONC 32.8 g/dl (32.0-36.5); MEAN CORPUSCULAR VOLUME 94.1 fl (80.0-96.0); MONO # 0.7 10^3/uL (0.0-0.8); MONO % 7.7 % (2.0-8.0); NEUTROPHILS # 3.8 10^3/uL (1.5-8.5); NEUTROPHILS % 41.6 % (36.0-66.0); PLATELET COUNT, AUTOMATED 169 10^3/uL (150-450); RED BLOOD COUNT 4.92 10^6/uL (4.00-5.40); WHITE BLOOD COUNT 9.2 10^3/uL (4.0-10.0)
[2021-11-20 18:11] LABS: ALBUMIN 3.2 GM/DL (3.2-5.2); ALT/SGPT 39 U/L (12-78); BILIRUBIN,TOTAL 0.2 MG/DL (0.2-1.0); BLOOD UREA NITROGEN 10 MG/DL (7-18); CALCIUM LEVEL 8.9 MG/DL (8.5-10.1); CARBON DIOXIDE LEVEL < 1.0 MEQ/L (21-32); CHLORIDE LEVEL 106 MEQ/L (98-107); CHOLESTEROL LEVEL < 50 MG/DL (<200); CHOLESTEROL RISK RATIO 8.333 (<5); CREATININE FOR GFR 0.58 MG/DL (0.55-1.30); FREE T4 < 0.10 NG/DL (0.76-1.46); GLOMERULAR FILTRATION RATE > 60.0 (>58); GLUCOSE, FASTING 56 MG/DL (70-100); HDL CHOLESTEROL 6 MG/DL (>40); LDL CHOLESTEROL 44 MG/DL (<100); MAGNESIUM LEVEL 1.7 MG/DL (1.8-2.4); NON-HDL-C 44 MG/DL; POTASSIUM SERUM 4.2 MEQ/L (3.5-5.1); SODIUM LEVEL 139 MEQ/L (136-145); TRIGLYCERIDES LEVEL < 2 MG/DL (<150)
== END ==
LOC: M PLAIMG 14:33 → M PLALAB 14:33
PROVIDERS: ATTEND Physician Assistant Medical
DX: E78.2 Mixed hyperlipidemia (principal); F41.1 Generalized anxiety disorder; J45.909 Unspecified asthma, uncomplicated

== ENCOUNTER → 2021-12-01 | Outpatient (CLI) | payer OTHER | LOC: M PLALAB 13:21 | PROVIDERS: ATTEND Physician Assistant Medical | DX: J45.909 Unspecified asthma, uncomplicated (principal) ==

== ENCOUNTER → 2022-09-07 | Outpatient (CLI) | payer OTHER ==
[2022-09-07 11:46] LABS: BASO % 0.5 % (0.0-1.0); EOS # 0.2 10^3/uL (0.0-0.5); EOS % 2.6 % (0.0-3.0); HEMATOCRIT 46.3 % (36.0-47.0); LYMPH # 3.8 10^3/uL (1.5-5.0); LYMPH % 43.2 % (24.0-44.0); MEAN CORPUSCULAR HEMOGLOBIN 30.2 pg (27.0-33.0); MEAN CORPUSCULAR HGB CONC 32.4 g/dl (32.0-36.5); MEAN CORPUSCULAR VOLUME 93.3 fl (80.0-96.0); MONO # 0.5 10^3/uL (0.0-0.8); NEUTROPHILS # 4.1 10^3/uL (1.5-8.5); PLATELET COUNT, AUTOMATED 178 10^3/uL (150-450); RED BLOOD COUNT 4.96 10^6/uL (4.00-5.40); WHITE BLOOD COUNT 8.8 10^3/uL (4.0-10.0)
[2022-09-07 11:49] LABS: ALBUMIN 3.3 G/DL (3.2-5.2); ALKALINE PHOSPHATASE 132 U/L (46-116); ALT/SGPT 37 U/L (7.0-40); AST/SGOT 21 U/L (<34); BILIRUBIN,TOTAL 0.2 MG/DL (0.3-1.2); BLOOD UREA NITROGEN 8 MG/DL (9-23); CALCIUM LEVEL 8.9 MG/DL (8.5-10.1); CARBON DIOXIDE LEVEL 28 MMOL/L (20-31); CHLORIDE LEVEL 102 MMOL/L (98-107); CHOLESTEROL LEVEL 159 MG/DL (<200); CHOLESTEROL RISK RATIO 3.99 (<5); CREATININE FOR GFR 0.79 MG/DL (0.55-1.30); FREE T4 1.04 NG/DL (0.89-1.76); GLOMERULAR FILTRATION RATE > 60.0 (>58); GLUCOSE, FASTING 111 MG/DL (60-100); HDL CHOLESTEROL 39.8 MG/DL (>40); LDL CHOLESTEROL 85.2 MG/DL (<100); NON-HDL-C 119 MG/DL; SODIUM LEVEL 137 MMOL/L (136-145); THYROID STIMULATING HORMONE 1.224 uIU/ML (0.55-4.78); TOTAL PROTEIN 6.7 G/DL (5.7-8.2); TRIGLYCERIDES LEVEL 170 MG/DL (<150)
[2022-09-07 11:51] LABS: CPK CREATINE PHOSPHOKINASE 121 U/L (34-145)
== END ==
LOC: M PLALAB 09:23
PROVIDERS: ATTEND Physician Assistant Medical
DX: I10 Essential (primary) hypertension (principal); F32.1 Major depressive disorder, single episode, moderate; E78.2 Mixed hyperlipidemia

== ENCOUNTER 2022-11-22 13:59 | Emergency (ER) | payer OTHER ==
[~2022-11-22] VITALS: Ht 167.6 cm; Wt 127.0 kg
[2022-11-22] MEDS ORDERED: MELO7.5T35 (14:13)
[2022-11-22] MEDS ORDERED: FAMO40TA3 (14:13)
[2022-11-22] MEDS ORDERED: ATOR80TA59 (14:15)
[2022-11-22] MEDS ORDERED: BUSP10TA (14:15)
[2022-11-22] MEDS ORDERED: MONT10TA97 (14:15)
[2022-11-22] MEDS ORDERED: GABA-282 (14:15)
[2022-11-22] MEDS ORDERED: BUPR1TAB56 (14:15)
[2022-11-22] MEDS ORDERED: LISI10TA22 (14:15)
[2022-11-22] MEDS ORDERED: NS 1,000 ML IV ONE (14:40)
[2022-11-22 15:19] LABS: BASO % 0.5 % (0.0-1.0); EOS # 0.2 10^3/uL (0.0-0.5); EOS % 2.9 % (0.0-3.0); HEMATOCRIT 44.3 % (36.0-47.0); HEMOGLOBIN 14.6 g/dl (12.0-15.5); LYMPH % 36.3 % (24.0-44.0); MEAN CORPUSCULAR HEMOGLOBIN 30.7 pg (27.0-33.0); MEAN CORPUSCULAR VOLUME 93.1 fl (80.0-96.0); MONO # 0.5 10^3/uL (0.0-0.8); MONO % 6.4 % (2.0-8.0); NEUTROPHILS # 4.4 10^3/uL (1.5-8.5); NEUTROPHILS % 53.3 % (36.0-66.0); PLATELET COUNT, AUTOMATED 169 10^3/uL (150-450); RED BLOOD COUNT 4.76 10^6/uL (4.00-5.40); WHITE BLOOD COUNT 8.2 10^3/uL (4.0-10.0)
[2022-11-22 15:39] LABS: ALBUMIN 2.9 G/DL (3.2-5.2); ALKALINE PHOSPHATASE 112 U/L (46-116); ALT/SGPT 37 U/L (7.0-40); AST/SGOT 28 U/L (<34); BILIRUBIN,DIRECT < 0.1 MG/DL (<0.4); BILIRUBIN,TOTAL 0.2 MG/DL (0.3-1.2); C REACTIVE PROTEIN QUANTITATIV < 0.40 MG/DL (<1.0); TOTAL PROTEIN 8.5 G/DL (5.7-8.2)
[2022-11-22 15:41] LABS: ERYTHROCYTE SEDIMENTATION RATE 35 mm/hr (0-20)
[2022-11-22] MEDS ORDERED: ceFAZolin SOD 2 GM in IV 1 EA IV ONE (16:00)
[2022-11-22] MEDS ORDERED: DOXY-443 PO (17:06)
[2022-11-22 17:38] VITALS: BP 146/86
== END 2022-11-22 17:44 | disposition home or self-care (01) ==
LOC: M ED 13:59
DX: L03.116 Cellulitis of left lower limb (principal); I10 Essential (primary) hypertension; E78.5 Hyperlipidemia, unspecified; K21.9 Gastro-esophageal reflux disease without esophagitis; J45.909 Unspecified asthma, uncomplicated; F41.9 Anxiety disorder, unspecified; F41.0 Panic disorder [episodic paroxysmal anxiety]; F17.200 Nicotine dependence, unspecified, uncomplicated; Z79.51 Long term (current) use of inhaled steroids; Z79.811 Long term (current) use of aromatase inhibitors; Z79.891 Long term (current) use of opiate analgesic; Z79.899 Other long term (current) drug therapy
CPT/HCPCS: 80047; 80076; 83605; 83880; 84702; 85025; 85652; 86140; 87040; 93005; 93971; 96365; 96366; 99284; J0690

== ENCOUNTER 2022-12-02 19:28 | Emergency (ER) | payer OTHER ==
[~2022-12-02] VITALS: Ht 167.6 cm; Wt 122.7 kg
[~2022-12-02 19:28] MED LIST changes: +ATOR80TA59; +BUPR1TAB56; +BUSP10TA; +DOXY-443 PO; +FAMO40TA3; +GABA-282; +LISI10TA22; +MELO7.5T35; +MONT10TA97
[2022-12-02 20:07] LABS: BASO # 0.1 10^3/uL (0.0-0.2); BASO % 0.6 % (0.0-1.0); EOS # 0.3 10^3/uL (0.0-0.5); EOS % 3.2 % (0.0-3.0); HEMATOCRIT 42.3 % (36.0-47.0); HEMOGLOBIN 14.2 g/dl (12.0-15.5); LYMPH # 3.6 10^3/uL (1.5-5.0); LYMPH % 40.4 % (24.0-44.0); MEAN CORPUSCULAR HEMOGLOBIN 31.2 pg (27.0-33.0); MEAN CORPUSCULAR HGB CONC 33.6 g/dl (32.0-36.5); MONO # 0.5 10^3/uL (0.0-0.8); MONO % 5.3 % (2.0-8.0); NEUTROPHILS # 4.4 10^3/uL (1.5-8.5); PLATELET COUNT, AUTOMATED 151 10^3/uL (150-450); RED BLOOD COUNT 4.55 10^6/uL (4.00-5.40); WHITE BLOOD COUNT 8.9 10^3/uL (4.0-10.0)
[2022-12-02 20:13] LABS: ERYTHROCYTE SEDIMENTATION RATE 29 mm/hr (0-20)
[2022-12-02 20:17] LABS: INR 0.87
[2022-12-02 20:30] LABS: CK-MB VALUE MASS < 1.0 NG/ML (<3.6)
[2022-12-02 20:32] LABS: BLOOD UREA NITROGEN 15 MG/DL (9-23); CALCIUM LEVEL 8.4 MG/DL (8.5-10.1); CARBON DIOXIDE LEVEL 29 MMOL/L (20-31); CHLORIDE LEVEL 102 MMOL/L (98-107); CREATININE FOR GFR 0.81 MG/DL (0.55-1.30); GLOMERULAR FILTRATION RATE > 60.0 (>58); GLUCOSE, FASTING 169 MG/DL (60-100); POTASSIUM SERUM 4.1 MMOL/L (3.5-5.1); SODIUM LEVEL 138 MMOL/L (136-145)
[2022-12-02] MEDS ORDERED: ISOVUE-370 76% 100ML VIAL As Ordered ONE (21:58)
[2022-12-02 22:08] LABS: C REACTIVE PROTEIN QUANTITATIV < 0.40 MG/DL (<1.0)
[2022-12-02 22:24] LABS: CPK CREATINE PHOSPHOKINASE 234 U/L (34-145); MB/CK RELATIVE INDEX 0.42 (< OR =4)
[2022-12-02 22:39] LABS: HEMOGLOBIN A1c 6.5 % (4.0-6.0)
[2022-12-02 23:36] VITALS: BP 161/81
[2022-12-02] MEDS ORDERED: KETO2CR TOP (23:41)
== END 2022-12-02 23:57 | disposition home or self-care (01) ==
LOC: M ED 19:28
DX: B37.0 Candidal stomatitis (principal); R73.9 Hyperglycemia, unspecified; I10 Essential (primary) hypertension; K21.9 Gastro-esophageal reflux disease without esophagitis; J45.909 Unspecified asthma, uncomplicated; J44.9 Chronic obstructive pulmonary disease, unspecified; F41.9 Anxiety disorder, unspecified; F17.200 Nicotine dependence, unspecified, uncomplicated; Z79.52 Long term (current) use of systemic steroids; Z79.811 Long term (current) use of aromatase inhibitors; Z79.891 Long term (current) use of opiate analgesic; Z79.899 Other long term (current) drug therapy

== ENCOUNTER 2022-12-15 12:10 | Emergency (ER) | payer OTHER ==
[~2022-12-15] VITALS: Ht 167.6 cm; Wt 122.4 kg
[~2022-12-15 12:10] MED LIST changes: +KETO2CR TOP
[2022-12-15] MEDS ORDERED: AUGMENTIN BID 400MG/5ML SUSP 50ML BTL PO ONE ×2 (13:35→13:40)
[2022-12-15] MEDS ORDERED: PRED5SOL10 PO (14:41)
[2022-12-15] MEDS ORDERED: AMOX400S2 PO (14:41)
[2022-12-15 14:49] VITALS: BP 140/78
== END 2022-12-15 14:50 | disposition home or self-care (01) ==
LOC: M ED 12:10
DX: J03.00 Acute streptococcal tonsillitis, unspecified (principal); I10 Essential (primary) hypertension; E78.5 Hyperlipidemia, unspecified; K21.9 Gastro-esophageal reflux disease without esophagitis; J45.909 Unspecified asthma, uncomplicated; F41.9 Anxiety disorder, unspecified; F32.A Depression, unspecified; F17.200 Nicotine dependence, unspecified, uncomplicated; Z88.6 Allergy status to analgesic agent; Z79.51 Long term (current) use of inhaled steroids; Z79.2 Long term (current) use of antibiotics; Z79.811 Long term (current) use of aromatase inhibitors; Z79.899 Other long term (current) drug therapy
CPT/HCPCS: 87428; 87880; 99283; J1100

== ENCOUNTER → 2023-01-15 | Outpatient (CLI) | payer OTHER ==
[~2023-01-15] MED LIST changes: +AMOX400S2 PO; +FLUT50SP17; -FLUTISP; +PRED15SO24 PO
== END ==
LOC: M PLALAB 10:07
PROVIDERS: ATTEND Physician Assistant Medical
DX: J43.9 Emphysema, unspecified (principal)

== ENCOUNTER → 2023-01-27 | Outpatient (CLI) | payer OTHER | LOC: M CARPUL 10:45 | PROVIDERS: ATTEND Physician Assistant Medical | DX: J43.9 Emphysema, unspecified (principal) ==

== ENCOUNTER → 2023-02-04 | Outpatient (REF) | payer OTHER | LOC: M SFHCPLAZ 11:09 | PROVIDERS: ATTEND Physician Assistant Medical | DX: Z53.9 Procedure and treatment not carried out, unspecified reason (principal) ==

== ENCOUNTER → 2023-03-24 | Outpatient (CLI) | payer OTHER ==
[2023-03-24 10:46] LABS: BASO % 0.5 % (0.0-1.0); EOS # 0.2 10^3/uL (0.0-0.5); EOS % 2.3 % (0.0-3.0); HEMATOCRIT 41.8 % (36.0-47.0); HEMOGLOBIN 13.4 g/dl (12.0-15.5); LYMPH # 2.7 10^3/uL (1.5-5.0); LYMPH % 34.8 % (24.0-44.0); MEAN CORPUSCULAR HEMOGLOBIN 30.7 pg (27.0-33.0); MEAN CORPUSCULAR HGB CONC 32.1 g/dl (32.0-36.5); MEAN CORPUSCULAR VOLUME 95.7 fl (80.0-96.0); MONO # 0.5 10^3/uL (0.0-0.8); MONO % 6.9 % (2.0-8.0); NEUTROPHILS # 4.3 10^3/uL (1.5-8.5); NEUTROPHILS % 55.1 % (36.0-66.0); PLATELET COUNT, AUTOMATED 177 10^3/uL (150-450); RED BLOOD COUNT 4.37 10^6/uL (4.00-5.40); WHITE BLOOD COUNT 7.9 10^3/uL (4.0-10.0)
[2023-03-24 11:10] LABS: ALBUMIN 3.3 G/DL (3.2-5.2); ALKALINE PHOSPHATASE 124 U/L (46-116); ALT/SGPT 41 U/L (7.0-40); AST/SGOT 38 U/L (<34); BILIRUBIN,TOTAL 0.3 MG/DL (0.3-1.2); BLOOD UREA NITROGEN 17 MG/DL (9-23); CALCIUM LEVEL 9.8 MG/DL (8.5-10.1); CARBON DIOXIDE LEVEL 25 MMOL/L (20-31); CHLORIDE LEVEL 104 MMOL/L (98-107); CREATININE FOR GFR 0.88 MG/DL (0.55-1.30); GLOMERULAR FILTRATION RATE > 60.0 (>58); GLUCOSE, FASTING 156 MG/DL (60-100); POTASSIUM SERUM 4.3 MMOL/L (3.5-5.1); SODIUM LEVEL 138 MMOL/L (136-145); TOTAL PROTEIN 6.8 G/DL (5.7-8.2)
[2023-03-24 11:11] LABS: THYROID STIMULATING HORMONE 2.465 uIU/ML (0.55-4.78)
[2023-03-24 11:12] LABS: FREE T4 0.93 NG/DL (0.89-1.76)
[2023-03-24 11:19] LABS: HEMOGLOBIN A1c 6.6 % (4.0-6.0)
== END ==
LOC: M PLALAB 08:45
PROVIDERS: ATTEND Physician Assistant Medical
DX: J45.909 Unspecified asthma, uncomplicated (principal); F41.1 Generalized anxiety disorder; I10 Essential (primary) hypertension; E11.9 Type 2 diabetes mellitus without complications

== ENCOUNTER → 2023-03-26 | Outpatient (CLI) | payer OTHER ==
[2023-03-26 14:40] LABS: HEMOGLOBIN A1c 6.4 % (4.0-6.0)
== END ==
LOC: M PLAIMG 10:52
PROVIDERS: ATTEND Physician Assistant Medical
DX: R06.01 Orthopnea (principal); G62.9 Polyneuropathy, unspecified

== ENCOUNTER → 2023-04-08 | Outpatient (CLI) | payer OTHER | LOC: M RAD 12:18 | PROVIDERS: ATTEND Physician Assistant Medical | DX: I73.9 Peripheral vascular disease, unspecified (principal) ==

== ENCOUNTER → 2023-05-05 | Outpatient (CLI) | payer OTHER | LOC: M RAD 08:18 | PROVIDERS: ATTEND Physician Assistant | DX: R91.8 Other nonspecific abnormal finding of lung field (principal) ==

== ENCOUNTER → 2023-05-25 | Outpatient (CLI) | payer OTHER ==
[~2023-05-25] MED LIST changes: +METHACHOLINE KIT INH ONE
== END ==
LOC: M CARPUL 12:36
PROVIDERS: ATTEND Physician Assistant
DX: R06.00 Dyspnea, unspecified (principal)
CPT/HCPCS: 94070; 95070; J7674

== ENCOUNTER → 2023-09-01 | Outpatient (CLI) | payer OTHER ==
[~2023-09-01] MED LIST changes: -METHACHOLINE KIT INH ONE
[2023-09-01 15:59] LABS: BASO % 0.4 % (0.0-1.0); EOS # 0.2 10^3/uL (0.0-0.5); EOS % 2.9 % (0.0-3.0); HEMOGLOBIN 14.4 g/dl (12.0-15.5); LYMPH # 3.3 10^3/uL (1.5-5.0); LYMPH % 41.4 % (24.0-44.0); MEAN CORPUSCULAR HEMOGLOBIN 31.1 pg (27.0-33.0); MEAN CORPUSCULAR HGB CONC 33.5 g/dl (32.0-36.5); MEAN CORPUSCULAR VOLUME 92.9 fl (80.0-96.0); MONO # 0.5 10^3/uL (0.0-0.8); MONO % 5.9 % (2.0-8.0); NEUTROPHILS # 3.9 10^3/uL (1.5-8.5); NEUTROPHILS % 48.9 % (36.0-66.0); PLATELET COUNT, AUTOMATED 183 10^3/uL (150-450); RED BLOOD COUNT 4.63 10^6/uL (4.00-5.40); WHITE BLOOD COUNT 7.9 10^3/uL (4.0-10.0)
[2023-09-01 16:25] LABS: FERRITIN 317.6 NG/ML (7.3-270.7)
== END ==
LOC: M PLAIMG 13:35
PROVIDERS: ATTEND Physician Assistant Medical
DX: M54.41 Lumbago with sciatica, right side (principal); M54.42 Lumbago with sciatica, left side; R71.0 Precipitous drop in hematocrit

== ENCOUNTER → 2024-02-29 | Outpatient (CLI) | payer OTHER ==
[~2024-02-29] MED LIST changes: +DOXY-323 PO; -DOXY-443 PO; -FLUT50SP17; +FLUTISP
[2024-02-29 14:10] LABS: BASO # 0.1 10^3/uL (0.0-0.2); BASO % 0.7 % (0.0-1.0); EOS # 0.2 10^3/uL (0.0-0.5); EOS % 2.7 % (0.0-3.0); HEMATOCRIT 46.9 % (36.0-47.0); HEMOGLOBIN 15.3 g/dl (12.0-15.5); LYMPH # 3.7 10^3/uL (1.5-5.0); LYMPH % 43.6 % (24.0-44.0); MEAN CORPUSCULAR HEMOGLOBIN 30.5 pg (27.0-33.0); MEAN CORPUSCULAR HGB CONC 32.6 g/dl (32.0-36.5); MEAN CORPUSCULAR VOLUME 93.6 fl (80.0-96.0); MONO # 0.6 10^3/uL (0.0-0.8); MONO % 6.8 % (2.0-8.0); NEUTROPHILS # 3.9 10^3/uL (1.5-8.5); NEUTROPHILS % 45.8 % (36.0-66.0); PLATELET COUNT, AUTOMATED 196 10^3/uL (150-450); RED BLOOD COUNT 5.01 10^6/uL (4.00-5.40); WHITE BLOOD COUNT 8.5 10^3/uL (4.0-10.0)
[2024-02-29 14:28] LABS: HEMOGLOBIN A1c 6.9 % (4.0-6.0)
[2024-02-29 14:38] LABS: IRON (FE) 95 UG/DL (50-170)
[2024-02-29 14:40] LABS: ALBUMIN 3.5 G/DL (3.2-5.2); ALKALINE PHOSPHATASE 143 U/L (46-116); ALT/SGPT 101 U/L (7.0-40); AST/SGOT 80 U/L (<34); BILIRUBIN,TOTAL 0.4 MG/DL (0.3-1.2); BLOOD UREA NITROGEN 18 MG/DL (9-23); CALCIUM LEVEL 9.5 MG/DL (8.5-10.1); CARBON DIOXIDE LEVEL 28 MMOL/L (20-31); CHLORIDE LEVEL 105 MMOL/L (98-107); CREATININE FOR GFR 0.83 MG/DL (0.55-1.30); GLOMERULAR FILTRATION RATE > 60.0 (>58); GLUCOSE, FASTING 140 MG/DL (60-100); POTASSIUM SERUM 4.4 MMOL/L (3.5-5.1); SODIUM LEVEL 141 MMOL/L (136-145); TOTAL PROTEIN 7.6 G/DL (5.7-8.2)
[2024-02-29 14:42] LABS: THYROID STIMULATING HORMONE 1.816 uIU/ML (0.55-4.78)
[2024-02-29 14:44] LABS: FERRITIN 479.5 NG/ML (7.3-270.7)
== END ==
LOC: M PLALAB 10:13
PROVIDERS: ATTEND Physician Assistant Medical
DX: R71.0 Precipitous drop in hematocrit (principal); R06.01 Orthopnea; E11.9 Type 2 diabetes mellitus without complications; I10 Essential (primary) hypertension; F41.1 Generalized anxiety disorder

== ENCOUNTER → 2024-03-27 | Outpatient (CLI) | payer OTHER | LOC: M WHC 09:33 | PROVIDERS: ATTEND Physician Assistant Medical | DX: Z12.31 Encounter for screening mammogram for malignant neoplasm of breast (principal) ==

== ENCOUNTER 2024-10-13 09:52 | Day surgery (SDC) | payer OTHER ==
[~2024-10-13] VITALS: Ht 167.6 cm; Wt 121.6 kg
[~2024-10-13 09:52] MED LIST changes: +AMLO1TAB24 PO; -ATOR80TA59; +ATOR80TA59 PO; -DOXY-323 PO; +DOXY-441 PO; -FAMO40TA3; +FAMO40TA3 PO; +GABA-1172 PO; -GABA-282; +HYDR1CAP25 PO; -LISI10TA22; +LISI10TA22 PO; -LORA-243; +LORA-243 PO; -MELO7.5T35; +MELO7.5T35 PO; +METF-838 PO; +NORT10CA2 PO; +OMEP40CA5 PO; +PENT400T22 PO; +TRAZ-252 PO
[2024-10-13] MEDS ORDERED: ALBUTEROL 6.7GM INHALER **FOR ANES. CART/OMNICELL ONLY As Ordered ONE (10:22)
[2024-10-13] MEDS ORDERED: propofoL 200 MG/20 ML VIAL As Ordered ONE (10:22)
[2024-10-13] MEDS ORDERED: GLYCOPYRROLATE INJ 0.2 MG/ML 2 ML VIAL As Ordered ONE (10:22)
[2024-10-13] MEDS ORDERED: LIDOCAINE 2% 100MG/5ML SDV (FOR ANES.) As Ordered ONE (10:22)
[2024-10-13 11:00] VITALS: BP 137/75; TEMP 97.5; O2SAT 97
== END 2024-10-13 11:01 | disposition home or self-care (01) ==
LOC: M OPP 09:52
PROVIDERS: ATTEND Surgery
DX: R10.13 Epigastric pain (principal); K31.89 Other diseases of stomach and duodenum; Z88.6 Allergy status to analgesic agent; Z79.84 Long term (current) use of oral hypoglycemic drugs; Z79.899 Other long term (current) drug therapy; F17.290 Nicotine dependence, other tobacco product, uncomplicated
CPT/HCPCS: 43239; 88305; J1596

== ENCOUNTER → 2024-11-27 | Outpatient (REF) | payer OTHER ==
[2024-11-27 13:57] LABS: BLOOD UREA NITROGEN 16 MG/DL (9-23); CREATININE FOR GFR 0.66 MG/DL (0.55-1.30); GLOMERULAR FILTRATION RATE > 60.0 (>58)
== END ==
LOC: M LABDRWAD 12:48
PROVIDERS: ATTEND Physician Assistant
DX: I73.9 Peripheral vascular disease, unspecified (principal)

== ENCOUNTER → 2024-11-29 | Outpatient (CLI) | payer OTHER ==
[~2024-11-29] MED LIST changes: +ISOVUE-370 76% 100ML VIAL As Ordered ONE
== END ==
LOC: M RAD 10:03
PROVIDERS: ATTEND Physician Assistant
DX: I73.9 Peripheral vascular disease, unspecified (principal)
CPT/HCPCS: 75635; Q9967

== ENCOUNTER → 2024-11-29 | Outpatient (CLI) | payer OTHER ==
[~2024-11-29] MED LIST changes: -ISOVUE-370 76% 100ML VIAL As Ordered ONE
[2024-11-29 10:40] LABS: BASO # 0.1 10^3/uL (0.0-0.2); BASO % 0.5 % (0.0-1.0); EOS # 0.2 10^3/uL (0.0-0.5); EOS % 2.5 % (0.0-3.0); HEMATOCRIT 43.7 % (36.0-47.0); HEMOGLOBIN 14.8 g/dl (12.0-15.5); LYMPH # 3.5 10^3/uL (1.5-5.0); LYMPH % 37.9 % (24.0-44.0); MEAN CORPUSCULAR HEMOGLOBIN 31.1 pg (27.0-33.0); MEAN CORPUSCULAR HGB CONC 33.9 g/dl (32.0-36.5); MEAN CORPUSCULAR VOLUME 91.8 fl (80.0-96.0); MONO # 0.5 10^3/uL (0.0-0.8); MONO % 5.6 % (2.0-8.0); NEUTROPHILS # 4.9 10^3/uL (1.5-8.5); NEUTROPHILS % 53.2 % (36.0-66.0); PLATELET COUNT, AUTOMATED 153 10^3/uL (150-450); RED BLOOD COUNT 4.76 10^6/uL (4.00-5.40); WHITE BLOOD COUNT 9.2 10^3/uL (4.0-10.0)
[2024-11-29 11:12] LABS: ALBUMIN 3.1 G/DL (3.2-5.2); ALKALINE PHOSPHATASE 129 U/L (35-104); ALT/SGPT 99 U/L (7.0-40); AST/SGOT 53 U/L (<34); BILIRUBIN,TOTAL 0.4 MG/DL (0.3-1.2); BLOOD UREA NITROGEN 15 MG/DL (9-23); CARBON DIOXIDE LEVEL 26 MMOL/L (20-31); CHLORIDE LEVEL 107 MMOL/L (98-107); CHOLESTEROL LEVEL 236 MG/DL (<200); CHOLESTEROL RISK RATIO 6.64 (<5); CREATININE FOR GFR 0.65 MG/DL (0.55-1.30); GLOMERULAR FILTRATION RATE > 60.0 (>58); GLUCOSE, FASTING 194 MG/DL (60-100); HDL CHOLESTEROL 35.5 MG/DL (>40); LDL CHOLESTEROL 141.3 MG/DL (<100); NON-HDL-C 200.5 MG/DL; POTASSIUM SERUM 4.5 MMOL/L (3.5-5.1); SODIUM LEVEL 138 MMOL/L (136-145); TOTAL PROTEIN 7.1 G/DL (5.7-8.2); TRIGLYCERIDES LEVEL 296 MG/DL (<150)
[2024-11-29 11:13] LABS: HEMOGLOBIN A1c 7.9 % (4.0-6.0)
[2024-11-29 11:15] LABS: THYROID STIMULATING HORMONE 2.141 uIU/ML (0.55-4.78)
[2024-11-29 11:16] LABS: FOLLICLE STIMULATING HORMONE 4.2 mIU/ML; FREE T4 1.16 NG/DL (0.89-1.76); LUTEINIZING HORMONE 7.9 mIU/ML
== END ==
LOC: M LAB 10:24
PROVIDERS: ATTEND Physician Assistant
DX: N91.2 Amenorrhea, unspecified (principal); E11.51 Type 2 diabetes mellitus with diabetic peripheral angiopathy without gangrene

== ENCOUNTER → 2025-05-24 | Outpatient (CLI) | payer OTHER ==
[~2025-05-24] MED LIST changes: -BUPR1TAB56; +BUPR200T45
[2025-05-24 09:50] LABS: BASO # 0.1 10^3/uL (0.0-0.2); BASO % 0.8 % (0.0-1.0); EOS # 0.3 10^3/uL (0.0-0.5); EOS % 3.9 % (0.0-3.0); LYMPH # 2.6 10^3/uL (1.5-5.0); LYMPH % 40.0 % (24.0-44.0); MONO # 0.4 10^3/uL (0.0-0.8); MONO % 6.9 % (2.0-8.0); NEUTROPHILS # 3.1 10^3/uL (1.5-8.5); NEUTROPHILS % 48.1 % (36.0-66.0); PLATELET COUNT, AUTOMATED 176 10^3/uL (150-450)
[2025-05-24 10:20] LABS: ALT/SGPT 48 U/L (7.0-40); AST/SGOT 38 U/L (<34); CALCIUM LEVEL 9.2 MG/DL (8.5-10.1); CARBON DIOXIDE LEVEL 28 MMOL/L (20-31); CHLORIDE LEVEL 102 MMOL/L (98-107); CPK CREATINE PHOSPHOKINASE 114 U/L (34-145); CREATININE FOR GFR 0.71 MG/DL (0.55-1.30); GLOMERULAR FILTRATION RATE > 90.0 (>58); POTASSIUM SERUM 4.0 MMOL/L (3.5-5.1); SODIUM LEVEL 143 MMOL/L (136-145)
[2025-05-24 11:21] LABS: ESTIMATED AVERAGE GLUCOSE 123.0 MG/DL (60-110)
[2025-05-25 10:04] LABS: T P ELECTROPHORESIS SO 6.6 g/dL (6.1-8.1)
[2025-05-29 08:04] LABS: ALBUMIN SPEP 3.4 g/dL (3.8-4.8); ALPHA-1-GLOBULINS SO 0.3 g/dL (0.2-0.3); ALPHA-2-GLOBULINS SO 0.8 g/dL (0.5-0.9); BETA 2 GLOBULIN 0.5 g/dL (0.2-0.5); BETA-GLOBULIN SO 0.4 g/dL (0.4-0.6); GAMMA GLOBULINS SO 1.2 g/dL (0.8-1.7)
== END ==
LOC: M LAB 08:33
PROVIDERS: ATTEND Physician Assistant
DX: R21 Rash and other nonspecific skin eruption (principal); E11.9 Type 2 diabetes mellitus without complications

== ENCOUNTER → 2025-07-09 | Outpatient (CLI) | payer OTHER | LOC: M ADAMS 14:42 | PROVIDERS: ATTEND Physician Assistant | DX: M51.362 Other intervertebral disc degeneration, lumbar region with discogenic back pain and lower extremity pain (principal) ==